=== PATIENT | male | born 1950 | race Caucasian/White ===

== ENCOUNTER 2023-11-10 09:52 | Outpatient (AMB) | payer MEDICARE, SELFPAY ==
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
== END 2023-11-10 10:38 | disposition home or self-care (01) ==
PROVIDERS: PCP Internal Medicine; Visit Provider Nurse Practitioner Family
DX: N28.1 Cyst of kidney, acquired (principal); Z90.5 Acquired absence of kidney
CPT/HCPCS: 99204

== ENCOUNTER → 2023-11-10 09:52 | Outpatient (BNVA) | payer MEDICARE, SELFPAY | PROVIDERS: PCP Internal Medicine; Visit Provider Nurse Practitioner Family | DX: N28.1 Cyst of kidney, acquired (principal); Z90.5 Acquired absence of kidney | CPT/HCPCS: 51798; 81003; 99202 ==

== ENCOUNTER 2024-05-03 11:10 | Outpatient (REF) | payer MEDICARE, SELFPAY ==
--- NOTE | ~2024-05-03 | US_ITS ---
EXAMINATION: US RETROPERITONEAL LIMITED, RIGHT (RENAL ONLY) CLINICAL INFORMATION: Acquired absence of kidney. COMPARISON: None available. TECHNIQUE: Real-time imaging of the right kidney. FINDINGS: RIGHT KIDNEY: 14.3 x 6.3 x 6.2 cm (SAG x AP x TRV). The kidney is normal in size, contour, and echogenicity. Renal cortical thickness is normal. No renal calculi or hydronephrosis. A few linear echogenic foci are seen which may represent vascular calcifications. Multiple benign Bosniak class I renal cysts are noted, the largest on at the upper pole measuring 6.0 cm, which require no additional imaging or follow-up. No solid renal masses are seen. LEFT KIDNEY: Surgically absent. US/US renal RT IMPRESSION: 1. Status post left nephrectomy. 2. Benign Bosniak class I right renal cysts need no further imaging or follow-up. Electronically signed by: Kuldeep Serrato MD 05/25/2024 07:01 PM LEE
== END 2024-05-03 11:11 | disposition home or self-care (01) ==
LOC: HO.US 11:10
PROVIDERS: PCP Physician Assistant Medical; Visit Provider Nurse Practitioner Family
DX: N28.1 Cyst of kidney, acquired (principal); Z90.5 Acquired absence of kidney
CPT/HCPCS: 76775

== ENCOUNTER 2024-05-12 08:10 | Outpatient (AMB) | payer MEDICARE, SELFPAY ==
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
== END 2024-05-12 09:13 | disposition home or self-care (01) ==
LOC: HO.HUSH 08:10
PROVIDERS: PCP Internal Medicine; Visit Provider Nurse Practitioner Family
DX: Z90.5 Acquired absence of kidney (principal); N28.1 Cyst of kidney, acquired
CPT/HCPCS: 99213; G2211

== ENCOUNTER → 2024-05-12 08:10 | Outpatient (BNVA) | payer MEDICARE, SELFPAY | PROVIDERS: PCP Internal Medicine; Visit Provider Nurse Practitioner Family | DX: N40.1 Benign prostatic hyperplasia with lower urinary tract symptoms (principal); N52.9 Male erectile dysfunction, unspecified; R35.1 Nocturia; N28.1 Cyst of kidney, acquired; I12.9 Hypertensive chronic kidney disease with stage 1 through stage 4 chronic kidney disease, or unspecified chronic kidney disease; N18.30 Chronic kidney disease, stage 3 unspecified; Z90.5 Acquired absence of kidney | CPT/HCPCS: 81003; 99212 ==

== ENCOUNTER 2025-05-09 07:44 | Outpatient (REF) | payer MEDICARE, SELFPAY ==
--- NOTE | ~2025-05-09 | US_ITS ---
CLINICAL HISTORY: Z90.5 - Acquired absence of kidney US Renal Comparison: US/SR - US KIDNEY RIGHT - 05/03/24 11:14 EDT Findings: Right kidney is 15.1 cm in length. Echogenic focus in the right kidney measuring 0.2 cm which may represent fat or a nonobstructive nephrolithiasis. Multiple additional right renal cysts. Largest right renal cyst measures 6.5 cm (Previously measured 6 cm). It is difficult to determine if there is internal echogenic material or artifact. CT or MRI renal protocol could be obtained for further evaluation. Left nephrectomy. No collecting system dilatation of either kidney. Normal color Doppler. IMPRESSION: 1. Echogenic focus in the right kidney measuring 0.2 cm which may represent fat or a nonobstructive nephrolithiasis. 2. Largest right renal cyst measures 6.5 cm (Previously measured 6 cm). It is difficult to determine if there is internal echogenic material or artifact. CT or MRI renal protocol could be obtained for further evaluation. 3. Left nephrectomy. This document has been electronically signed by: Baudilio Moreira DO on 05/09/2025 14:16:12
--- OUTSIDE RECORDS SUMMARY | 2025-05-09 07:46 | XMS_ITS | Data Portability ---
Author Organization JORDYN Jeramy Inman [facility], [facility] Address [address] [place] [address] Care Team Providers Care Engineer Internship Name Role Phone LORELEI CHAVEZ Primary Care Provider Assessment Encounter Date Assessment Date Assessment LastModified by Organization Details LastModified Time 09/24/2024 09/24/2024 Patient diagnosis discussed with patient today. However most of his symptoms have resolved since hiking more frequently in the fall time. Do believe is likely coming from underlying tendinopathy of the distal IT band. Do not see any significant signs of lysis or loosening of any sort of implants. Does have a slight amount of play with that medial compartment which does raise concerns over some early polyethylene wear however again no confirming x-ray findings appreciated. At this point discussed home stretching strengthening program for the IT band. 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 Happily see him back sooner if any difficulty [email or web address] Not available 09/24/2024 08:57:34 Plan of Treatment Reminders Order Date Submit Date Provider Last Modified By Organization Details Last Modified Time Details Appointments None recorded. Lab None recorded. Referral None recorded. Procedures None recorded. Surgeries None recorded. Imaging XR, knee, 3 view - room 212, R TKR recheck (don) 025 025 [email or web address] i1 [facility], [address], [place], [address], 5 13:47:36 Medication Orders None recorded. Patient TargetsNo targets recorded. Patient InstructionsNo instructions recorded. Reason for Referral None Reported. Results Created Date Observation Date Name Description Value Unit Range Abnormal Flag Note LastModifiedBy Organization Detail LastModifiedTime 03/05/20 24 12/26/2021 imagi ng/di agnos tic resul t No observ ation record ed. [email or web address] Not Available 02/06 13:03:18 09/25/19 25 09/24/2024 XR, knee, 3 view http:/ [email or web address] ?Encry pted=s hAaTro YD8dLq bEUv6g %2BXZw aYqtaq 0bqfl% 2Fg9IQ a4ajBk vP9nXo QUaueC m3YtLR FvZlgJ JJ8mAn HZtai3 6b5993 AC0KqY niGVaO iKiQtr MwF INTERFACE [facility] [address], [place], [address], 09/24/2024 08:21:26 Result Notes Documentation Provider Name and Address Organization Details Recorded Time Xr, Knee, 3 View : [email or web address] Encrypted=[email or web address] Uv6g%9SKWczQqheg9qfpt%2Fg 9IGp7pxEquD3pPdPUndpTa7Me GDIjYcpVLO1mRzZEdkf18r919 3LE0TiObvJTcKzSsTusYwN Not Available [facility] 09/24/2024 08:21: 27 Problems Name Problem SNOMED Code Status Onset Date Resolution Date Notes Provider Name and Address Organization Details Recorded Time Pain of left shoulder joint 716916472462153 09 Active 2023 Hang Lerner MD [address], [place], [address], [facility] 11:31:57 Problem Notes None recorded. Procedures Surgical History Date Name Laterality Status Provider Name and Address Organization Details Recorded Time Sports Shoulder 4&1 completed Hang Lerner MD [address], [place], [address], [facility] 01/31/2024 11:31:06 4 Knee Surgery completed Lyndsey Cheek [facility] 09/24/2024 08:08:18 0 Other completed Lyndsey Cheek [facility] 09/24/2024 08:08:18 6 Knee [facility] 09/24/2024 08:08:18 4 Knee Surgery [facility] 09/24/2024 08:08:18 3 Shoulder Surgery completed [facility] 09/24/2024 08:08:18 2 [facility]er [facility] 09/24/2024 08:08:18 Other completed [facility] 09/24/2024 08:08:18 Imaging Results None recorded. Procedure Notes None recorded. Medical Equipment None Reported. Allergies Allergen ID Allergen Name Allergen Category Reaction Reaction Severity Criticality Documentation Date Start Date Code Code System Note Provider Name and Address Organization Details Recorded Time [id number] penicilli n G benzathin e medicatio n Not available Not available Not available 01/28/2024 7982 RxNorm LISSETTE CERVANTES [facility] 4 14:11:20 Medications Name Sig Start Date Stop Date Status Note LastModified by Organization Details LastModified Time atorvastati n 40 mg tablet TAKE 1 TABLET BY MOUTH EVERYDAY AT BEDTIME active Not Available Not Available No t Available clindamycin HCl 300 mg capsule TAKE 2 CAPSULE 1 HOUR BEFORE PROCEDURE active Not Available Not Available No t Available metoprolol succinate ER 50 mg tablet,exte nded release 24 hr TAKE 1 TABLET BY MOUTH EVERY DAY active Not Available Not Available No t Available sildenafil 100 mg tablet TAKE 1 TABLET NEEDED -60 MINUTES BEFORE INTERCOUR SE. MAX IS 100MG IN 24 HOURS. 09/21 completed Not Available Not Available Not Available ciclopirox 8 % topical solution APPLY TO NAILS DAILY FOR 6-12 MONTHS-ON CE WEEKLY REMOVE BUILDUP ON NAILS USING NAIL MONEGASQUE REMOVER. 09/21 completed Not Available Not Available Not Available losartan 100 mg-hydrochl orothiazide 25 mg tablet TAKE 1 TABLET BY MOUTH EVERY DAY active Not Available Not Available No t Available amlodipine 10 mg tablet TAKE 1 TABLET BY MOUTH EVERY DAY active Not Available Not Available No t Available pseudoephed rine-gurhondafe nesin ER 80-700 mg tablet,exte nded release DO NOT DRIVE WHILE TAKING THIS MEDICATIO N 09/21 completed Statu s: 'Curr ent'; Not Available Not Available Not Available polymyxin B sulfate 10,000 unit-trimet hoprim 1 mg/mL eye drops PLACE 2 DROPS INTO BOTH EYES 3 TIMES DAILY FOR 7 DAYS. 09/21 completed Not Available Not Available Not Available Laxative (bisacodyl) 5 mg tablet,siobhan yed release TAKE 2 TABLETS BY MOUTH RIGHT BEFORE YOUR FIRST DOSE OF LIQUID PREP. active Not Available Not Available No t Available diclofenac sodium apply to area BID 09/21 completed Statu s: 'Curr ent'; Not Available Not Available Not Available clindamycin HCl Clindamyc in HCl 150MG Capsule 2021 active Statu s: 'Curr ent'; Not Available Not Available Not Available GaviLyte-G 236 gram-22.74 gram-6.74 gram-5.86 gram oral solution PLEASE SEE ATTACHED FOR DETAILED DIRECTION S active Not Available Not Available No t Available Vitals Date Recorded Body height Body mass index (BMI) Body weight Provider Name and Address Organization Details Last Updated DateTime 09/24/2024 170.18 cm 27.4 kg/m2 84426.66 g Lyndsey Cheek [facility] 09/24/2024 08:08:27 Date Recorded Body height Body mass index (BMI) Body weight Provider Name and Address Organization Details Last Updated DateTime 01/31/2024 170.18 cm 27.4 kg/m2 44321.66 g LISSETTE CERVANTES [facility] 01/31/2024 10:39:41 Social History None recorded. Functional Status None recorded. Mental Status None recorded. Family History Nothing Reported. Medical History Condition Response Coronary Artery Disease N Anxiety/Depression N Emphysema N COPD N Pacemaker N Vascular Disease N Heart Trouble N Gastrointestinal Disease N Autoimmune disease N Orthotics N Arthritis N Blood Clot N Acid Reflux (GERD) N Cancer N Stroke N Circulation Problems N Rheumatoid Arthritis N Arrhythmia N Headaches N Fibromyalgia N Allergies/Hayfever N Breathing or lung disorders N Nerve Disorders N Thyroid Problems N Kidney/Bladder Problems Y Anemia N Heart Attack (CA) N Cholesterol Y Diabetes N Bleeding Disorder N Seizures/Epilepsy N AIDS/HIV N Congestive Heart Failure (CHF) N Asthma N Peripheral Vascular Disease N Sleep Apnea N Hepatitis N Heart Disease N Pulmonary Embolism N Hypertension Y Osteoporosis N Past Encounters Encounter ID Performer Location Encounter Start Date Encounter Closed Date Diagnosis/Indication Diagnosis SNOMED-CT Code Diagnosis ICD10 Code Diagnosis IMO Codes Diagnosis Note [id number] MD [facility] [address] [place] [address] 01/31/2024 10:00:49 02/27/2024 12:25:05 Pain of left shoulder joint [id number] 7468282 M25.046 [id number] DANIEL Morales [address] [place] [address] 09/24/2024 07:59:37 10/11/2024 10:37:14 History of right total knee replacement 2533388782 992971 Z96.651 [id number] Health Concerns Section Related Observation LastModified by Organization Detai ls LastModified Time None Recorded Concern Status LastModified by Organization Details LastModified Time None Recorded Advance Directives Directive None Recorded Payers Insurance Date Sequence Insurance Name Policy Number Policy Silva Covered Member ID Silva Member ID Guarantor Name 09/23/2024 1 [place] [employer] George Cedeno [id number] George Cedeno 10/11/2024 1 [employer] - MEDICARE ADVANTAGE PLAN (MEDICARE REPLACEMENT HMO) [id number] George Cedeno [id number] George Cedeno 01/31/2024 1 [facility] (MEDICARE REPLACEMENT/A DVANTAGE - PPO) [id number] George Cedeno [id number] George Cedeno Notes Date Note Type Note Provider Name and Address Organization Details Recorded Time 01/31/2024 text/html HPI: Patient presents with complaints of left lateral brachial pain, worse in overhead poitions, symptoms present now for several weeks. Has attempted activity modification, NSAIDS, but has not yet had formal therapy, nor cortisone injection. Reports a minor trauma with a fall and a driveway but pain started several hours later. PFMSH and ROS has been reviewed, updated, and is located in the patient s chart. PHYSICAL EXAMINATION: The patient is well appearing and in no apparent distress. Alert and oriented x 3. Gait is symmetric. right shoulder ROM full, 5/5 strength including rotator cuff and periscapular musculature. Good muscle bulk and strength without atrophy. No evidence of instability of the shoulder. Negative impingement signs. Negative AC joint tenderness. left shoulder exam: Elevates to 170 degrees, externally rotates 60, internal rotates to L1. Patient exhibits bursal irritability, with positive impingment test, No AC joint irritability. Good strength as she fires her cuff with external rotation. Mild pain with resistive horizontal elevation today. No instabitly noted. Cervical ROM normal without radicular symptoms HEENT is unremarkable without carotid bruits or JVD.Heart regular rate and rhythm without murmurs rubs or gallopsAbdomen soft nontender nondistended positive bowel soundsLungs are clear bilaterally without rales rhonchi or wheezes. No erythema, no redness, no warmth. Peripheral, vascular, lymphatic examination, skin, neurological, coordination, reflexes, sensation are within normal limits. X-RAY REPORT: X-rays were ordered, obtained and reviewed today at [facility]. 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 Recommended rest, ice, activity modification. Recommended and performed shoulder subacromial space injection. After meticulous sterile preparation leftshoulder subacromial space injected with 10ccs of Lidocaine, 80mgs of Kenalog. Postinjection precautions reviewed. Recommendation is for referal to physical therapy and plan to recheck in 3 to 4 months as necessary based upon symptoms. Hang Lerner MD [address], [place], [address], [facility] 01/31/2024 11:32:08 09/24/2024 text/html I am seeing the patient today under the supervision of Dr. Fung who was available but who did not see the patient. Patient comes in for evaluation of his right knee. He is status post right total knee arthroplasty [address] Arevalo. Has been doing very well in this regard. Patient states that start developing some pain discomfort this fall when hiking and [place] in the [place]. We get some achy soreness mainly in the lateral aspect of that knee. There was no specific injury to account for this. Denies fever chills or other recent procedures. No other recent modalities. Jim Mcnamara PA-C [address], [place], [address], [place] [facility] 09/24/2024 08:57:52
--- OUTSIDE RECORDS SUMMARY | 2025-05-09 07:46 | XMS_ITS | Encounter Summary ---
Author Organization [facility] Address [address] [place] [address] Care Team Providers Care Product Promoter Sales Person Name Role Phone Ayush Balderas Primary Care Provider [phone] Reason for Referral * Consultation (Routine) - Authorized Specialty Diagnoses / Procedures Referred By Chris hugo Referred To Contact Orthopaedics Diagnoses Knee pain, unspecified chronicity, unspecified laterality Ayush Balderas PA [address] [place], [place] Phone: tel: fax: [facility] [address] [place] [address] Phone: tel: fax: Referral ID Status Reason Start Date Expiration Date Visits Requested Visits Authorized [id number] Authorized Specialty Services Required 08/26/2024 08/26/2025 1 1 Encounter Details Date Type Department Care Team (Late st Contact Info) Description 08/25/2024 Nurse Triage Adult Medicine [facility] [address] [place] [phone] Ayush Balderas PA [address] [place] [address] Social History Tobacco Use Types Packs/Day Years Used Date Smoking Tobacco: Former Cigarettes Q uit: 07/07/1969 Smokeless Tobacco: Never Alcohol Use Standard Drinks/Week Comments Yes 0 (1 standard drink = 0.6 oz pur e alcohol) Sex and Gender Information Value Date Recorded Sex Assigned at Male 08/09/2022 5:27 PM EST Legal Sex Male 5:27 PM EST Gender Identity Male 08/09/2022 5:27 PM EST Sexual Orientation Straight 08/09/2022 5: 27 PM EST documented as of this encounter Progress Notes * PHIL Frias - 08/26/2024 12:17 PM EST Ok [address] referral for orthopedics. Not sure about the labs. They may have been ordered previously but they have not been abstracted from [facility] * Kasey Dolan RN - 08/26/2024 9:00 AM EST #1 question Pt. Is asking about having blood work prior to his visit with the specialist. I advised pt. To callthe specialist office and ask whether they would like blood work prior to his visit or wait for apt. #2 pt. States his rt. Knee is starting to bother him intermittently with sharp pain on inner aspectof knee and also after walking for awhile the outer aspect becomes painful. He denies redness, heator swelling, no fever or chills. Pt. Had a rt. Knee total arthroplasty on that knee and feels he should consult with them again . He is requesting a referral to this orthopedic surgeon who preformed s urgery in 2005. I set up referral does pt. Need to be seen prior to referral ? Will send to PCP documented in this encounter Plan of Treatment Upcoming Encounters Date Type Department Care Team (Late st Contact Info) Description 07/22/2025 7:30 AM EST Office Visit [address] [address] Ayush Balderas PA [address] [place] [address] 08/05/2025 2:00 PM EST Office Visit [facility] [address] [place] [address] Jose Tracey MD [address] [place] [address] [address] [place] [phone] 11/01/2025 10:45 AM EDT Office Visit [facility] [address] [place] [phone] Chris Carvalho MD [address] [facility] [address] [place] [phone] Scheduled Referrals Name Type Priority Associated Diagnoses Order Schedule Ambulatory referral to Orthopedic Outpatient Referral Routine Knee pain, unspecified chronicity, unspecified laterality 1 Occurrences starting 08/26/2024 until 08/26/2025 documented as of this encounter Visit Diagnoses Diagnosis Knee pain, unspecified chronicity, unspecified laterality- Primary documented in this encounter Care Teams Product Promoter Sales Person Relationship Specialty Start Date End Date Ayush Balderas PA [address] [place] [phone] PCP - General Internal Medicine 09/04/20 documented as of this encounter
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
--- OUTSIDE RECORDS SUMMARY | 2025-05-09 07:47 | XMS_ITS ---
Author Name [facility] Organization Unknown Care Team Organization Name Specialty Phone Email Start Date End Da te [facility] Ayush Balderas Primary Care 12/13/2022 [facility] Termed, PROVIDER Primary Care 05/14/202202/04
== END 2025-05-09 07:45 | disposition home or self-care (01) ==
LOC: HO.US 07:44
PROVIDERS: PCP Physician Assistant Medical; Visit Provider Nurse Practitioner Family
DX: N28.1 Cyst of kidney, acquired (principal); Z90.5 Acquired absence of kidney
CPT/HCPCS: 76775

== ENCOUNTER → 2025-05-09 07:46 | Outpatient (BNV) | payer MEDICARE, SELFPAY | PROVIDERS: PCP Physician Assistant Medical; Visit Provider Family Medicine | DX: N28.1 Cyst of kidney, acquired (principal); Z90.5 Acquired absence of kidney | CPT/HCPCS: 76775 ==

== ENCOUNTER 2025-05-12 08:14 | Outpatient (AMB) | payer MEDICARE, SELFPAY ==
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
--- OUTSIDE RECORDS SUMMARY | 2025-05-12 08:31 | XMS_ITS | Encounter Summary ---
Author Organization [facility] Address [address] [place] [address] Care Team Providers Care Benzene Still Utility Operator Name Role Phone Ayush Balderas Primary Care Provider [phone] Reason for Referral * Consultation (Routine) - Authorized Specialty Diagnoses / Procedures Referred By Chris hugo Referred To Contact Orthopaedics Diagnoses Knee pain, unspecified chronicity, unspecified laterality Ayush Balderas PA [address], [place] Phone: tel: fax: [facility] [address] [place] [address] Phone: tel: fax: Referral ID Status Reason Start Date Expiration Date Visits Requested Visits Authorized [id number] Authorized Specialty Services Required 08/26/2024 08/26/2025 1 1 Encounter Details Date Type Department Care Team (Late st Contact Info) Description 08/25/2024 Nurse Triage Adult Medicine [facility] [address] [place] [phone] Ayush Balderas PA [address] [place] [address] Social History Tobacco Use Types Packs/Day Years [...] Description 07/22/2025 7:30 AM EST Office Visit [address] [address] Ayush Balderas PA [address] [place] [address] 08/05/2025 2:00 PM EST Office Visit [facility] [address] [place] [address] Jose Tracey MD [address] [place] [address] [address] [place] [phone] 11/01/2025 10:45 AM EDT Office Visit [facility] [address] [place] [phone] Chris Carvalho MD [address] [facility] [address] [place] [phone] Scheduled Referrals Name Type Priority Associated Diagnoses Order Schedule Ambulatory referral to Orthopedic Outpatient Referral Routine Knee pain, unspecified chronicity, unspecified laterality 1 Occurrences starting 08/26/2024 until 08/26/2025 documented as of this encounter Visit Diagnoses Diagnosis Knee pain, unspecified chronicity, unspecified laterality- Primary documented in this encounter Care Teams Benzene Still Utility Operator Relationship Specialty Start Date End Date Ayush Balderas PA [address] [place] [phone] PCP - General Internal Medicine 09/04/20 documented as of this encounter
--- OUTSIDE RECORDS SUMMARY | 2025-05-12 08:31 | XMS_ITS | Data Portability ---
Author Organization JORDYN Jeramy Inman [facility] Address [address] [place] [address] Care Team Providers Care Manager Client Name Role Phone LORELEI CHAVEZ Primary Care [...] [facility], [address], [place], [address], 5 13:47:36 Medication Orders None recorded. Patient [...] [id number] iKiQtr MwF INTERFACE [facility] [address], [place], [address], 09/24/2024 08:21:26 Result Notes Documentation Provider Name and Address Organization Details Recorded Time Xr, Knee, 3 View : [email or web address] [id number] Not Available [facility] 09/24/2024 08:21: 27 Problems Name Problem SNOMED Code Status Onset Date Resolution Date Notes Provider Name and Address Organization Details Recorded Time Pain of left shoulder joint 208001766913387 09 Active 2023 Hang Lerner MD [address], [place], [address], [facility] 11:31:57 Problem Notes None recorded. Procedures Surgical History Date Name Laterality Status Provider Name and Address Organization Details Recorded Time Sports Shoulder 4&1 completed Hang Lerner MD [address], [place], [address], [facility] 01/31/2024 11:31:06 4 Knee Surgery completed Lyndsey Cheek [facility] 09/24/2024 08:08:18 0 Other completed Lyndsey Cheek [facility] 09/24/2024 08:08:18 6 Knee Surgery [facility] 09/24/2024 08:08:18 4 Knee Surgery [facility] 09/24/2024 08:08:18 3 Shoulder Surgery completed [facility] 09/24/2024 08:08:18 2 [facility]er [facility] 09/24/2024 08:08:18 Other completed [facility] 09/24/2024 08:08:18 Imaging Results None recorded. Procedure Notes None recorded. Medical Equipment None Reported. Allergies Allergen ID Allergen Name Allergen Category Reaction Reaction Severity Criticality Documentation Date Start Date Code Code System Note Provider Name and Address Organization Details Recorded Time 066571 penicilli n G benzathin e medicatio n Not available Not available Not available 01/28/2024 7982 RxNorm LISSETTE CERVANTES [facility] 4 14:11:20 Medications Name Sig Start Date [...] WEEKLY REMOVE BUILDUP ON NAILS USING NAIL NAURUAN REMOVER. 09/21 completed Not Available Not Available Not Available losartan 100 mg-hydrochl orothiazide 25 mg tablet TAKE 1 TABLET BY MOUTH EVERY DAY active Not Available Not Available No t Available amlodipine 10 mg tablet TAKE 1 TABLET BY MOUTH EVERY DAY active Not Available Not Available No t Available pseudoephed rine-guaife nesin ER 80-700 mg tablet,exte nded release [...] Updated DateTime 09/24/2024 170.18 cm 27.4 kg/m2 17304.66 g Lyndsey Cheek [facility] 09/24/2024 08:08:27 Date Recorded Body height Body mass index (BMI) Body weight Provider Name and Address Organization Details Last Updated DateTime 01/31/2024 170.18 cm 27.4 kg/m2 59013.66 g LISSETTE CERVANTES [facility] 01/31/2024 10:39:41 Social History None recorded. Functional Status None recorded. Mental Status None recorded. Family History Nothing Reported. Medical History Condition Response Allergies/Hayfever N Coronary Artery Disease N Anxiety/Depression N Breathing or lung disorders N Emphysema N Nerve Disorders N Thyroid Problems N COPD N Pacemaker N Anemia N Kidney/Bladder Problems Y Vascular Disease N Heart Trouble N Heart Attack (NV) N Gastrointestinal Disease N Cholesterol Y Diabetes N Autoimmune disease N Bleeding Disorder N Orthotics N Arthritis N Seizures/Epilepsy N Blood Clot N AIDS/HIV N Congestive Heart Failure (CHF) N Acid Reflux (GERD) N Cancer N Stroke N Asthma N Circulation Problems N Peripheral Vascular Disease N Sleep Apnea N Hepatitis N Heart Disease N Rheumatoid Arthritis N Arrhythmia N Pulmonary Embolism N Headaches N Fibromyalgia N Hypertension Y Osteoporosis N Past Encounters Encounter ID Performer Location Encounter Start Date Encounter Closed Date Diagnosis/Indication Diagnosis SNOMED-CT Code Diagnosis ICD10 Code Diagnosis IMO Codes Diagnosis Note [id number] MD Vinny Jaquez [address] [place] [address] 01/31/2024 10:00:49 02/27/2024 12:25:05 Pain of left shoulder joint [id number] M25.188 [id number] DANIEL Morales [address] [place] [address] 09/24/2024 07:59:37 10/11/2024 10:37:14 History of right total knee replacement [id number] 825582 Z96.651 [id number] Health Concerns Section Related Observation LastModified by Organization Detai ls LastModified Time None Recorded Concern Status LastModified by Organization Details LastModified Time None Recorded Advance Directives Directive None Recorded Payers Insurance Date Sequence Insurance Name Policy Number Policy Silva Covered Member ID Silva Member ID Guarantor Name 09/23/2024 1 [place]: [employer] George Cedeno [id number] George Cedeno 10/11/2024 1 [employer] - MEDICARE ADVANTAGE PLAN (MEDICARE REPLACEMENT HMO) [id number] George Cedeno [id number] George Cedeno 01/31/2024 1 [facility] (MEDICARE REPLACEMENT/A DVANTAGE - PPO) [id number] George Cedeno [id number] George Cedeno Notes Date Note Type Note [...] were ordered, obtained and reviewed today at [facility]. Four views of the leftshoulder [...] based upon symptoms. Hang Lerner MD [address] [facility] [address], [place], [address], [facility] 01/31/2024 11:32:08 09/24/2024 text/html [...] other recent modalities. Jim Mcnamara PA-C [address] [facility] [address], [place], [address], [place] - [facility] 09/24/2024 08:57:52
--- OUTSIDE RECORDS SUMMARY | 2025-05-12 08:32 | XMS_ITS | Clinical Summary ---
Author Organization [facility] Address [address] [place] [address] Care Team Providers Care Data Modeling Architect Name Role Phone Ayush Balderas Primary Care Provider [phone] Allergies Active Allergy Reactions Criticality Noted Date Comments Penicillins Anaphylaxis High 07/10/2005 Medications ascorbic acid (VITAMIN C) 500 mg tablet Take 1 tablet (500 mg total) by mouth. Active aspirin 81 mg chewable tablet Chew. Acti ve ciclopirox (PENLAC) 8 % solution Apply to affected nails daily. Remove with alcohol wipe every 7 days 2 Active rmhr-thkyuu-[id number] gen-D3-C-Mn 500-400-667 mg-mg-unit capsule Take by mouth 1 (one) time each day. Active multivit with minerals/lutein (MULTIVITAMIN 50 PLUS ORAL) Take by mouth. Acti ve amLODIPine (NORVASC) 10 mg tablet TAKE 1 TABLET BY MOUTH EVERY DAY 90 tablet 3 5 Active metoprolol succinate (TOPROL-XL) 50 mg 24 hr tabletIndications :Essential (primary) hypertension TAKE 1 TABLET BY MOUTH EVERY DAY 90 tablet 3 5 Active clindamycin (CLEOCIN) 300 mg capsule TAKE 2 CAPSULE 1 HOUR BEFORE PROCEDURE 4 capsule 5 5 Active atorvastatin (LIPITOR) 40 mg tablet Take 1 tablet (40 mg total) by mouth at bedtime. 90 tablet 1 5 Active sildenafiL (VIAGRA) 100 mg tablet TAKE 1 TABLET NEEDED 60 MINUTES BEFORE INTERCOURSE. MAX IS 100 MG IN 24 HOURS. 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 V24) 08/16/2021 PVC's (premature ventricular contractions) 08/16 Pure hypercholesterolemia 07/16/2021 Dyspnea on exertion 07/16/2021 COVID-19 03/22/2021 Ventricular bigeminy 11/23/2014 Overview (09/09/2023): Cardio note 10/26/2014 Dr. Tracey CKD (chronic kidney disease) stage 3, GFR 30-59 ml/min ([facility] V24, [facility] V28) 11/23/2014 Single kidney 06/17/2012 Hearing loss 11/19/2010 Essential hypertension, benign 12/30/2006 Hyperlipidemia 07/06/2005 Impotence of organic origin 07/06/2005 Encounters Date Type Department Care Team Description 04/28/2025 1:00 PM EDT Office Visit Vascular Surgery - [place] [address] [place] [address] Ana M Knott PA Phlebitis [...] PROCEDURE: HISTORICAL TOTAL KNEE REPLACE; COMMENT: right 2006 OTHER SURGICAL HISTORY PROCEDURE: HISTORY OTHER; COMMENT: [...] kidney disease) stage 3, GFR 30-59 ml/min ([facility] V24, [facility] V28) 11/23/2014 DX:CKD (chronic kidney disea se) stage 3, GFR 30-59 ml/min ([facility]) Ventricular bigeminy 11/23/2014 DX:Ventricu lar bigeminy; COMMENT: Cardio note 10/26/2014 Dr. Tracey Family History Medical History Relation Name Comments Heart attack Father Heart attack Uncle 3 uncles 40-50 of mi Relation Name Status Comments Brother (Age 61) CABG AGE 4 8 Father [place] AGE 43 Mother (Age 84) COPD colon [...] for your loved ones. For example, child monitor or elderly care for an older adult? [...] 7:30 AM EST Office Visit Adult Medicine [address] [phone] Ayush Balderas, PA [address] [place] [address] 08/05/2025 2:00 PM EST Office Visit [facility] [address] [place] [phone] Jose Tracey MD [address] [place] [address] [address] [place] [phone] 11/01/2025 10:45 AM EDT Office Visit [facility] [place] [address] [place] [phone] Chris Carvalho MD [address] [facility] [address] [place] [phone] Health Maintenance Due Date Last Done Comments [...] Procedure Name Priority Date/Time Associated Diagnosis Comments EXTERNAL ULTRASOUND REPORT 05/09/2025 EXTERNAL ULTRASOUND REPORT 05/09/2025 COMPREHENSIVE METABOLIC PANEL Routine 07/09/2024 7:41 AM EST Hyperlipidemia CKD (chronic kidney disease) stage 3, GFR 30-59 ml/min ([facility]/HCC V24, [facility] V28) Benign prostatic hyperplasia with nocturia LIPID PANEL WITH REFLEX TO DIRECT LDL Routine 07/09/2024 7:41 AM EST Hyperlipidemia CKD (chronic kidney disease) stage 3, GFR 30-59 ml/min (CMS/HCC V24, [facility] V28) Benign prostatic hyperplasia with nocturia HM COLONOSCOPY Routine 04/19/2021 from Last 3 Months or Most Recently Relevant to Health Maintenance Results * External Ultrasound Report (05/09/2025) Only the most recent of2 resultswithin the time period is included. Anatomical Region Laterality Modality Ultrasound us Provider [facility] US PROCEDURES Final Result * Lipid panel with reflex to direct LDL (07/09/2024 7:41 AM EST) Cholesterol 177 0 - 200 mg/dL LAB CHEMISTRY METHOD 07/09/2024 10:46 AM [facility] Triglycerides 121 0 - 150 mg/dL LAB CHEMISTRY METHOD 07/09/2024 10:46 AM [facility] HDL 76 >=40 mg/dL LAB CHEMISTRY METHOD 07/09/2024 10:46 AM [facility] LDL Calculated 77 0 - 100 mg/dL LAB CHEMISTRY METHOD 07/09/2024 10:46 AM [facility] VLDL Cholesterol Husam 24.2 mg/dL LAB CHEMISTRY METHOD 07/09/2024 10:46 AM [facility] Non HDL Chol. (LDL+VLDL) 101 <145 mg/dL LAB CHEMISTRY METHOD 07/09/2024 10:46 AM [facility] Chol/HDL Ratio 2.3 0.0 - 4.4 LAB CHEMISTRY METHOD 07/09/2024 10:46 AM [facility] Blood Venous blood specimen / Unknown Venipuncture / Unknown 07/09/2024 7:41 AM EST 07/09/2024 7:41 AM EST us Ayush VILLARREAL LAB BLOOD ORDERABLES Anali l Result [facility] [address] [place] [address], * Comprehensive metabolic panel (07/09/2024 7:41 AM EST) Sodium 136 133 - 145 mmol/L LAB CHEMISTRY METHOD 07/09/2024 10:46 AM [facility] Potassium 4.0 3.5 - 5.5 mmol/L LAB CHEMISTRY METHOD 07/09/2024 10:46 AM [facility] Chloride 102 96 - 110 mmol/L LAB CHEMISTRY METHOD 07/09/2024 10:46 AM [facility] CO2 30 21 - 32 mmol/L LAB CHEMISTRY METHOD 07/09/2024 10:46 AM [facility] Anion Gap 4 3 - 11 LAB CHEMISTRY METHOD 07/09/2024 10:46 AM [facility] Glucose 94 70 - 100 mg/dL LAB CHEMISTRY METHOD 07/09/2024 10:46 AM [facility] BUN 22 5 - 25 mg/dL LAB CHEMISTRY METHOD 07/09/2024 10:46 AM [facility] Creatinine 1.10 0.70 - 1.30 mg/dL LAB CHEMISTRY METHOD 07/09/2024 10:46 AM [facility] eGFR 70 >=60 mL/min/1. 73m2 LAB CHEMISTRY METHOD 07/09/2024 10:46 AM [facility] Comment:Calculation based on the Chronic Kidney Disease Epidemiology Collaboration (CKD-EPI) equation refit without adjustment for race. BUN/Creatinine Ratio 20.0 LAB CHEMISTRY METHOD 07/09/2024 10:46 AM [facility] Calcium 9.3 8.5 - 10.5 mg/dL LAB CHEMISTRY METHOD 07/09/2024 10:46 AM [facility] AST (SGOT) 22 10 - 42 unit/L LAB CHEMISTRY METHOD 07/09/2024 10:46 AM [facility] ALT (SGPT) 33 10 - 60 unit/L LAB CHEMISTRY METHOD 07/09/2024 10:46 AM [facility] Alkaline Phosphatase 60 42 - 121 unit/L LAB CHEMISTRY METHOD 07/09/2024 10:46 AM [facility] Total Protein 7.0 6.0 - 8.0 g/dL LAB CHEMISTRY METHOD 07/09/2024 10:46 AM [facility] Albumin 4.1 3.2 - 5.0 g/dL LAB CHEMISTRY METHOD 07/09/2024 10:46 AM [facility] Total Bilirubin 0.9 0.0 - 1.4 mg/dL LAB CHEMISTRY METHOD 07/09/2024 10:46 AM EST [facility] Blood Venous blood specimen / Unknown Venipuncture / Unknown 07/09/2024 7:41 AM EST 07/09/2024 7:41 AM EST Ayush VILLARREAL LAB BLOOD ORDERABLES Anali l Result [facility] [address] [place] [address], * Colonoscopy (04/19/2021) Colonoscopy abnormal Anatomical Region Laterality Modality Other Historical Provider HEALTH MAINTENANCE Final Result from Last 3 Months or Most Recently Relevant to Health Maintenance Insurance [employer] Care Teams Data Modeling Architect Relationship Specialty Start Date End Date Ayush Balderas PA [address] [place] [phone] PCP - General Internal Medicine 09/04/20
== END 2025-05-12 09:06 | disposition home or self-care (01) ==
LOC: HO.HUSH 08:14
PROVIDERS: PCP Internal Medicine; Visit Provider Nurse Practitioner Family
DX: Z90.5 Acquired absence of kidney (principal); N28.1 Cyst of kidney, acquired; R39.12 Poor urinary stream; R35.0 Frequency of micturition; Z13.9 Encounter for screening, unspecified
CPT/HCPCS: 99213; G2211

== ENCOUNTER → 2025-05-12 08:14 | Outpatient (BNVA) | payer MEDICARE, SELFPAY | PROVIDERS: PCP Internal Medicine; Visit Provider Nurse Practitioner Family | DX: R39.12 Poor urinary stream (principal); R35.0 Frequency of micturition; N28.1 Cyst of kidney, acquired; Z90.5 Acquired absence of kidney | CPT/HCPCS: 81003; 99212 ==